=== PATIENT | male | born 1960 | race Caucasian/White ===

== ENCOUNTER → 2020-07-28 15:23 | Outpatient (CLI) | payer MEDICAID, SELFPAY ==
[2020-07-28 16:03] LABS: Basophils % 0.5 % (0.1-2.0); Eosinophils # 0.3 K/mm3 (0.0-0.4); Eosinophils % 3.5 % (0.1-12.0); Hematocrit 45.9 % (42.0-52.0); Hemoglobin 15.5 g/dL (14.1-18.0); Lymphocytes # 2.1 K/mm3 (0.7-4.5); Lymphocytes % 28.5 % (10-50); Mean Corpuscular HGB Conc 33.7 g/dL (31.8-35.4); Mean Corpuscular Hemoglobin 32.8 pg (27.0-31.2); Mean Corpuscular Volume 97.4 fl (80-94); Mean Platelet Volume 8.9 fl (7.4-10.4); Monocytes # 0.5 K/mm3 (0.1-1.0); Monocytes % 6.5 % (1.7-9.3); Neutrophils # 4.4 K/mm3 (1.8-7.8); Neutrophils % 60.9 % (37.0-80.0); Platelet Count 378 K/mm3 (142-424); Red Blood Count 4.72 M/mm3 (4.60-6.20); Red Cell Distribution Width 14.2 % (11.5-17.5); White Blood Count 7.2 K/mm3 (4.8-10.8)
[2020-07-28 17:52] LABS: Chloride 102 mmol/L (98-107); Potassium 4.2 mmoL/L (3.5-5.1); Sodium 140 mmol/L (136-145)
[2020-07-28 17:54] LABS: Alanine Aminotransferase 55 U/L (12-78); Aspartate Amino Transferase 39 U/L (17-59); Blood Urea Nitrogen 17 mg/dl (9-20); Estimated Glomerular Filt Rate 87 ml/min (>60); GFR (African American) 105 ML/MIN (>60)
[2020-07-28 17:55] LABS: Albumin Level 4.5 g/dl (3.5-5.0); Albumin/Globulin Ratio 1.5 (1.1-1.8); Alkaline Phosphatase 66 U/L (38-126); Anion Gap 14.2 mEq/L (5-15); Bilirubin,Total 0.6 mg/dl (0.2-1.3); Carbon Dioxide 28 mmol/L (22.0-30.0); Chol/HDL Ratio 5.6 (1-3.5); Cholesterol 246 mg/dl (140-200); Globulin 3.1 g/dL (1.3-3.2); Glucose 125 mg/dl (74-100); HDL Cholesterol 44 mg/dl (40-60); Total Protein,Serum 7.6 g/dl (6.3-8.2); Triglycerides 295 mg/dl (30-150); VLDL Cholesterol 59 mg/dL (0-40)
[2020-07-28 18:07] LABS: Direct LDL Cholesterol 137.29 mg/dL (100-129)
[2020-07-28 18:26] LABS: Thyroid Stimulating Hormone 3.36 uIU/mL (0.465-4.68)
[2020-07-28 21:23] LABS: Prostate Specific Ag Screen 0.9 ng/ml (0.0-4.0)
[2020-07-29 16:32] LABS: Hemoglobin A1C 6.6 % (4.0-6.0)
[2020-08-05 02:27] LABS: Testosterone, Total, LC/MS 226.5 ng/dL (264.0-916.0)
== END ==
PROVIDERS: Visit Provider Physician Assistant
DX: I10 Essential (primary) hypertension (principal); R73.09 Other abnormal glucose; Z76.89 Persons encountering health services in other specified circumstances; Z12.5 Encounter for screening for malignant neoplasm of prostate
CPT/HCPCS: 80053; 80061; 82306; 83036; 84402; 84403; 84436; 84443; 85025; G0103

== ENCOUNTER → 2020-08-10 15:03 | Outpatient (CLI) | payer MEDICAID, SELFPAY ==
[2020-08-12 09:10] LABS: Testosterone,Total 140 ng/dL (264-916)
== END ==
PROVIDERS: Visit Provider Physician Assistant
DX: R79.89 Other specified abnormal findings of blood chemistry (principal)
CPT/HCPCS: 84403

== ENCOUNTER 2021-04-04 21:27 | Inpatient (IN) | payer OTHER, SELFPAY ==
--- NOTE | 2021-04-04 21:22 | ECG_ITS ---
APPROVED REPORT Exam: Resting ECG HR:89 bpm ECG Measurements Heart Rate 89 AXES DE 144 P 25 QRSd 88 QRS 11 QT 362 T -14 QTc 440 Conclusion Normal sinus rhythm Normal ECG Electronically signed by : Shen Stone MD 04/06/2021 11:47:46
[2021-04-04 21:43] VITALS: BMI 34.3
--- NOTE | 2021-04-04 21:43 | XR_ITS ---
PROCEDURE INFORMATION: Exam: XR Chest Exam date and time: 04/04/2021 9:43 PM Age: 60 years old Clinical indication: Cough and shortness of breath; Patient HX: SOA, cough, has been around covid positive person; Additional info: SOA, chest pain TECHNIQUE: Imaging protocol: XR of the chest. Views: 2 views. COMPARISON: No relevant prior studies available. FINDINGS: Lungs: There are extensive bilateral airspace opacities, most pronounced in the mid lung regions. Findings would suggest multifocal pneumonia given the clinical history. Pulmonary edema could appear similar in the appropriate context. Pleural spaces: No pleural effusion. No pneumothorax. Heart/Mediastinum: Normal heart size. Vasculature: Mild aortic atherosclerosis. Bones/joints: Scattered degenerative changes. Probable left glenohumeral joint intra-articular body. IMPRESSION: Extensive bilateral airspace opacities probably represent multifocal pneumonia, versus pulmonary edema.
[2021-04-04 21:54] LABS: Influenza A, PCR Not Detected (NotDetected); Influenza B, PCR Not Detected (NotDetected)
[2021-04-04 21:57] LABS: Basophils % 0.3 % (0.1-2.0); Hematocrit 39.8 % (42.0-52.0); Hemoglobin 13.3 g/dL (14.1-18.0); Lymphocytes # 0.7 K/mm3 (0.7-4.5); Lymphocytes % 9.8 % (10-50); Mean Corpuscular HGB Conc 33.4 g/dL (31.8-35.4); Mean Corpuscular Volume 89.7 fl (80-94); Monocytes # 0.3 K/mm3 (0.1-1.0); Monocytes % 3.4 % (1.7-9.3); Neutrophils # 6.3 K/mm3 (1.8-7.8); Neutrophils % 86.4 % (37.0-80.0); Platelet Count 321 K/mm3 (142-424); Red Blood Count 4.43 M/mm3 (4.60-6.20); Red Cell Distribution Width 14.4 % (11.5-17.5); White Blood Count 7.3 K/mm3 (4.8-10.8)
[2021-04-04 22:00] VITALS: BP 149/70; PULSE 89; RESP 28; TEMP 37.2; O2SAT 92; BMI 33.3
[2021-04-04 22:02] LABS: Anion Gap 12.6 mEq/L (5-15); Blood Urea Nitrogen 21 mg/dl (9-20); Calcium 8.4 mg/dl (8.4-10.2); Carbon Dioxide 27 mmol/L (22.0-30.0); Chloride 102 mmol/L (98-107); Creatinine Clearance Estimated 106 mL/min (50-200); Estimated Glomerular Filt Rate 69 ml/min (>60); GFR (African American) 83 ML/MIN (>60); Glucose 134 mg/dl (74-100); MANUAL DIFFERENTIAL MANUAL DIFFERENTIAL (MANUAL DIFF); Potassium 3.6 mmoL/L (3.5-5.1); Sodium 138 mmol/L (136-145)
[2021-04-04 22:07] LABS: C-Reactive Protein 118.7 mg/L (0-4)
[2021-04-04 22:16] LABS: Troponin I 0.02 ng/ml (0.00-0.034)
[2021-04-04 22:23] LABS: Lactic Acid 1.2 mmol/L (0.7-2.1)
[2021-04-04 22:27] LABS: Coronavirus 19, PCR Detected (NotDetected)
--- NOTE | 2021-04-04 22:27 | CT_ITS ---
PROCEDURE INFORMATION: Exam: CTA Chest With Contrast Exam date and time: 04/04/2021 10:27 PM Age: 60 years old Clinical indication: Shortness of breath; Additional info: Covid + SOA TECHNIQUE: Imaging protocol: Computed tomographic angiography of the chest with contrast. 3D rendering (Not supervised by radiologist): MIP and/or 3D reconstructed images were created by the technologist. Radiation optimization: All CT scans at this facility use at least one of these dose optimization techniques: automated exposure control; mA and/or kV adjustment per patient size (includes targeted exams where dose is matched to clinical indication); or iterative reconstruction. Contrast material: ISOVUE 370; Contrast volume: 70 ml; Contrast route: INTRAVENOUS (IV); COMPARISON: CR XR CHEST 2V 04/04/2021 10:06 PM FINDINGS: Pulmonary arteries: Main pulmonary artery measures 3.5 cm in caliber, mildly dilated, suggesting elevated pulmonary arterial pressures. No large or central pulmonary embolus. There is mild diffuse heterogeneity of the subsegmental pulmonary arteries due to artifact, without convincing filling defect. Aorta: No thoracic aortic aneurysm. No evidence of dissection, within limits of motion artifact. Scattered mild atherosclerotic plaque. 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 Replaced right hepatic artery arising from the SMA, partially visualized. Lungs: Numerous bilateral ground-glass opacities, which are relatively confluent, with randy consolidation noted in several portions of the bilateral upper and lower lobes. Pleural spaces: Trace bilateral pleural effusions. No pneumothorax. Heart: Mild coronary arterial calcification. Heart size borderline enlarged. No pericardial effusion. Lymph nodes: There are a few mildly enlarged prevascular lymph nodes measure up to 1.2 cm in short axis. Right paratracheal lymph nodes measure up to 1.6 cm in short axis. There is a 1.4 cm short axis subcarinal lymph node. There are scattered aortopulmonary window and precarinal lymph nodes measuring up to 1 cm in short axis. Given the extensive pneumonia present, findings are favored to be reactive. Adrenal glands: Mild thickening of the bilateral adrenal glands. There is a probable superimposed 1.6 x 1.0 cm left adrenal nodule, partially visualized. Bones/joints: Mild spondylosis. No acute fracture. Soft tissues: Unremarkable. IMPRESSION: 1. Extensive bilateral multifocal pneumonia, compatible with history of viral infection. 2. No evidence of pulmonary embolus. 3. Trace bilateral pleural effusions. 4. Numerous enlarged lymph nodes are present throughout the mediastinum, probably reactive given the pneumonia. However, consider a follow-up CT in 3-6 months to assess for resolution. 5. Nonspecific thickening bilateral glands, with a partially visualized likely 1.6 x 1.0 cm left adrenal nodule. Consider 12 month follow-up adrenal CT. (Reference: Tami) References: Tami WEINBERG, et al. Management of Incidental Adrenal Masses: A White Paper of the ACR Incidental Findings Committee. J Am Sherice Radiol. 2017;14(8):3907-3019.
[2021-04-04 22:33] LABS: Erythrocyte Sedimentation Rate 68 mm/hr (0-20)
[2021-04-04 22:42] LABS: NT Pro Brain Natriuretic Pep. 543 pg/mL (0-125)
[2021-04-04 22:52] LABS: Eosinophils % 1 % (0-3); Lymphocytes % 9 % (10-50); Monocytes % 2 % (2-9); Neutrophils % 86 % (42-76); Platelet Estimate Normal; Total Cells Counted 100
--- NOTE | 2021-04-04 23:04 | HMH.EDSOB ---
ED Disposition Clinical Impression: COVID-19 with pulmonary comorbidity Disposition: Admitted As Inpatient Condition on Discharge: Serious - Critical Care Critical Care Time: No Attestation: On 04/04/21, the high probability of a clinically significant, sudden or life threatening deterioration of the following system(s) required my full and direct attention, intervention and personal management. The time I documented below is in addition to time spent performing reported procedures but includes the following listed in this critical care notation. Medical Decision Making - Medical Records Medical records reviewed: Yes: I reviewed the patient's medical records. - Jed Inquiry Pt receiving controlled substance: No Vital Signs: 04/04/21 22:00 Temperature 98.9 F Temperature Source Oral Pulse Rate [Right Brachial] 89 Respiratory Rate 28 H Blood Pressure [Right Arm] 149/70 H Blood Pressure Mean [Right Arm] 96 Blood Pressure Source [Right Arm] Automatic Cuff Blood Pressure Position [Right Arm] Sitting 02 Sat by Pulse Oximetry 92 L Oxygen Delivery Method Room Air - Lab Data Lab results reviewed: Yes: I reviewed the patient's lab results. Lab Results 04/04/21 21:35: WBC 7.3, RBC 4.43 L, Hgb 13.3 L, Hct 39.8 L, MCV 89.7, MCH 30.0, MCHC 33.4, RDW 14.4, Plt Count 321, MPV 8.0, Neut % (Auto) 86.4 H, Lymph % (Auto) 9.8 L, [place] % (Auto) 3.4, Eos % (Auto) 0.0 L, Baso % (Auto) 0.3, Neut # (Auto) 6.3, Lymph # (Auto) 0.7, [place] # (Auto) 0.3, Eos # (Auto) 0.0, Baso # (Auto) 0.0, Total Counted 100, Neutrophils % (Manual) 86 H, Lymphocytes % (Manual) 9 L, Monocytes % (Manual) 2, Eosinophils % (Manual) 1, Basophils % (Manual) 2.0 H, Platelet Estimate Normal 04/04/21 21:35: Sodium 138, Potassium 3.6, Chloride 102, Carbon Dioxide 27, Anion Gap 12.6, BUN 21 H, Creatinine 1.10, Estimated Creat Clear 106, Estimated GFR 69, Est GFR ( Amer) 83, Glucose 134 H, Calcium 8.4, Magnesium 2.0, Troponin I 0.02, C-Reactive Protein 118.7 H 04/04/21 21:35: ESR 68 H 04/04/21 21:35: Procalcitonin 0.177 04/04/21 21:35: NT-Pro-B Natriuret Pep 543 H 04/04/21 21:45: SARS-CoV-2 (PCR) Detected A, Influenza A Untype (PCR) Not detected, Influenza Type B (PCR) Not detected 04/04/21 22:02: Lactate 1.2 Result diagrams: 04/04/21 21:35 04/04/21 21:35 Orders (Tests/Meds): ED MEDICATIONS Generic Name Dose Route Start Last Admin Trade Name Freq PRN Reason Stop Dose Admin Sodium Chloride 1,000 mls @ 999 mls/hr 04/04/21 22:15 04/04/21 22:23 Sod Chlor 0.9% 1000ml Bag IV 04/04/21 23:15 999 mls/hr .Q1H1M JEET Administration Levofloxacin/Dextrose 500 mg in 100 mls @ 100 mls/hr 04/04/21 23:45 04/05/21 00:02 Levaquin 500mg/100ml Premix IV 04/18/21 23:44 100 mls/hr Q24H JEET Administration Discontinued Medications Generic Name Dose Route Start Last Admin Trade Name Freq PRN Reason Stop Dose Admin Dexamethasone Sodium Phosphate 10 mg 04/04/21 22:06 04/04/21 22:23 Dexamethasone 4mg/Ml 5ml Mdv IV 04/04/21 22:07 10 mg ONCE ONE Administration Iopamidol 70 ml 04/04/21 23:04 04/04/21 23:05 Iopamidol-370 (76%);100ml Bottle IV 04/04/21 23:05 70 ml ONCE ONE Administration Ketorolac Tromethamine 30 mg 04/04/21 22:06 04/04/21 22:23 Ketorolac 30mg/Ml Vial IV 04/04/21 22:07 30 mg ONCE ONE Administration Sodium Chloride 50 ml 04/04/21 23:04 04/04/21 23:05 0.9 % Sodium Chloride 50 Ml Vial IV 04/04/21 23:05 50 ml ONCE ONE Administration Sodium Chloride 10 ml 04/04/21 23:04 04/04/21 23:05 Sodium Chloride 0.9% 10ml Syr (Rad Only) IV 04/04/21 23:05 10 ml ONCE ONE Administration ORDERS Category Date Time Status Troponin I Q3H Lab 04/05/21 00:45 Ordered Troponin I Q3H Lab 04/05/21 03:45 Ordered Urinalysis and Microscopic Stat Lab 04/04/21 21:43 Ordered Blood Culture Stat Micro 04/04/21 22:05 Ordered - Radiology Data #1 Image(s): Chest Image Reviewed: Yes I have re
[2021-04-04 23:14] LABS: Procalcitonin 0.177 ng/mL (0.0-2.0)
[2021-04-05] VITALS (13 sets, daily range): BP systolic 107–153; BP diastolic 64–80; PULSE 60–95; RESP 14–28; TEMP 36.4–37.3; O2SAT 60–93; BMI 33.6
--- NOTE | 2021-04-05 01:28 | PC.NURSE ---
patient up to floor via wheelchair @ 01:06
[2021-04-05 01:36] LABS: Troponin I 0.02 ng/ml (0.00-0.034)
[2021-04-05 05:34] LABS: Basophils # 0.1 K/mm3 (0-0.2); Basophils % 0.6 % (0.1-2.0); Eosinophils % 0.1 % (0.1-12.0); Hematocrit 37.8 % (42.0-52.0); Hemoglobin 12.7 g/dL (14.1-18.0); Lymphocytes # 0.7 K/mm3 (0.7-4.5); Lymphocytes % 8.6 % (10-50); Mean Corpuscular HGB Conc 33.6 g/dL (31.8-35.4); Mean Corpuscular Hemoglobin 30.4 pg (27.0-31.2); Mean Corpuscular Volume 90.5 fl (80-94); Mean Platelet Volume 7.8 fl (7.4-10.4); Monocytes # 0.2 K/mm3 (0.1-1.0); Monocytes % 2.2 % (1.7-9.3); Neutrophils # 6.9 K/mm3 (1.8-7.8); Neutrophils % 88.5 % (37.0-80.0); Platelet Count 297 K/mm3 (142-424); Red Blood Count 4.18 M/mm3 (4.60-6.20); Red Cell Distribution Width 14.2 % (11.5-17.5); White Blood Count 7.8 K/mm3 (4.8-10.8)
[2021-04-05 06:04] LABS: Troponin I 0.01 ng/ml (0.00-0.034)
--- NOTE | 2021-04-05 07:00 | XR_ITS ---
PROCEDURE INFORMATION: Exam: XR Chest Exam date and time: 04/05/2021 7:00 AM Age: 60 years old Clinical indication: Shortness of breath; Patient HX: Covid positive; Additional info: SOB TECHNIQUE: Imaging protocol: XR of the chest. Views: 1 view. COMPARISON: CR XR CHEST 2V 04/04/2021 10:06 PM FINDINGS: Lungs: diffuse interstitial and alveolar airspace disease most pronounced in the perihilar regions and lung bases than right. Pneumonia versus cardiogenic or noncardiogenic edema versus other alveolar filling process. Correlate. Pleural spaces: Unremarkable. No pleural effusion. No pneumothorax. Heart/Mediastinum: Borderline cardiomegaly. Bones/joints: Unremarkable. IMPRESSION: Diffuse interstitial and alveolar airspace disease most pronounced in the perihilar regions and lung bases than right. Pneumonia versus cardiogenic or noncardiogenic edema versus other alveolar filling process. Correlate.
--- NOTE | 2021-04-05 07:36 | HMH.PHAVTE ---
[facility] Pharmacy VTE Monitoring - Patient Demographics Admission date: 04/04/21 Report Date: 04/05/21 Time: 07:36 Allergies/Adverse Reactions: Patient Allergies No Known Allergies Allergy (Verified 09/09/20 09:08) Height: 1.75 m Weight: 102.965 kg Patient Problems: Current Active Problems COVID-19 with pulmonary comorbidity (Acute) - VTE Risk Labs: VTE Related Lab Results Hgb 12.7 g/dL (14.1-18.0) L 04/05/21 05:14 Hct 37.8 % (42.0-52.0) L 04/05/21 05:14 Plt Count 297 K/mm3 (142-424) 04/05/21 05:14 BUN 21 mg/dl (9-20) H 04/04/21 21:35 Creatinine 1.10 mg/dl (0.66-1.25) 04/04/21 21:35 Estimated Creat Clear 106 mL/min (50-200) 04/04/21 21:35 - Prophylaxis VTE Prophylaxis Ordered?: Yes Types of VTE Prophylaxis: TEDS Knee High Location of Applied Device: Bilateral Lower Extremeties
--- NOTE | 2021-04-05 08:00 | CA_ITS ---
APPROVED REPORT EXAM: Comprehensive 2D, Doppler, and color-flow Echocardiogram Motor Man: Ruby Shankar CRT Ht: 5 ft 9 in Wt: 226lbs BSA: 2.18 BP: 000/00 mmHg Indications: Covid +, Shortness of Breath, Diabetes, Hyperlipidemia, Hypertension/HDD, asthma, weekly alcohol use, on vapotherm and NRB, pneumonia pt coughed thru out exam 2D Dimensions LVOT 2.00 cm (M/F) 1.5-2.5 LA Volume 58.00 mL LA Volume Index 26.60 mL/m2 (M/F) 16-34 M-Mode Dimensions RVDd 2.81 cm (0.9-2.6) LA Diam 3.63 cm (1.9-4.0) LVDd 5.72 cm (3.5-5.7) Ao Diam 4.71 cm (2.0-3.7) LVDs 3.95 cm (3.5-5.7) IVSd 1.54 cm (0.6-1.1) PWd 1.04 cm (0.6-1.1) EF (Teich) 57.90% FS 30.90% EDV (Teich) 161.30 mL TAPSE 2.06 (<1.7) ESV (Teich) 67.90 mL LV Diastology E Decel Time 157.00 (160-240 msec) E/A Ratio 1.32 MED E' 8.00 (< 7 cm/sec) MED A' 11.60 cm/s E'/MED E' Ratio 14.54 (>14) LAT E' 8.50 (<10 cm/sec) LAT A' 13.30 cm/s E/LAT E' Ratio 13.68 (>14) Aortic Valve LVOT Max 142.00 (70-110 cm/s) LVOT VTI 31.56 cm AoV Peak Bakari. 209.00 (50-130 cm/s) AO Peak GR. 17.60 mmHg AO Mean GR. 7.80 (<5 mmHg) AO VTI 39.00 (18-25 cm) LIMA (VTI) 2.54 (2.5-4.5 cm2) Mitral Valve MV A Velocity 88.00 (40-130 cm/s) E/A Ratio 1.32 MV Decel. Time 157.00 (160-240 ms) Pulmonary Valve PV Peak Velocity 165.00 (50-150 cm/s) Tricuspid Valve TR P. Velocity 172.00 cm/s RAP Estimate 10.00 mmHg RVSP 21.80 mmHg Left Ventricle Left atrium is mildly enlarged, left ventricle is normal size, mild concentric left ventricular hypertrophy, visually estimated ejection fraction 55% with no regional wall motion abnormality, grade 1 diastolic dysfunction seen without tissue Doppler evidence of raise left atrial pressure. Right Ventricle Right atrium and right ventricle mildly enlarged with normal contractility. Aortic Valve Aortic valve is thickened and calcified without significant aortic stenosis or aortic insufficiency. Mitral Valve Mitral valve is grossly normal, there is trace mitral regurgitation. Tricuspid Valve Tricuspid grossly normal, there is trace tricuspid regurgitation, tricuspid regurgitation jet velocity is inadequate for calculation of the right ventricular systolic pressure. Pulmonic Valve Pulmonic valve is poorly visualized. Great Vessels Aortic root is enlarged measuring 4.8 cm, if clinically indicated CT scan of the chest with contrast is recommended to exclude presence of thoracic aneurysm. Inferior vena cava is mildly dilated without significant inspiratory collapse. Pericardium No significant pericardial effusion noted. Conclusion 1. Biatrial enlargement, normal left ventricular size, mild concentric left ventricular hypertrophy, visually estimated ejection fraction 55% with no regional wall motion abnormality, grade 1 diastolic dysfunction seen without tissue Doppler evidence of raise left atrial pressure. 2. Enlarged aortic root as described above, a CT scan of the chest is recommended to exclude presence of thoracic aneurysm. 3. Trace mitral and tricuspid regurgitation. 4. No significant pericardial effusion noted, inferior vena cava is mildly dilated without significant inspiratory collapse. Electronically signed by : Tyshawn Morris MD 04/05/2021 17:14:07
--- NOTE | 2021-04-05 09:15 | HMH.HP ---
*Admission Date: 04/04/21 *Chief complaint: Shortness of breath *History of present illness: 60-year-old male patient presented to the [facility] department with reports of shortness of breath, he states that his was Covid +4 weeks ago and he began having symptoms then, but was never tested. He reports he has been short of breath in the past 4 weeks and has been increasing and now it is intolerable. 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 SARS-COV-2+ 04/04/21 CXR: IMPRESSION: Extensive bilateral airspace opacities probably represent multifocal pneumonia, versus pulmonary edema. Electronically signed by Naveed Hanson MD 04/04/21 Chest CTA: FINDINGS: Pulmonary arteries: Main pulmonary artery measures 3.5 cm in caliber, mildly dilated, suggesting elevated pulmonary arterial pressures. No large or central pulmonary embolus. There is mild diffuse heterogeneity of the subsegmental pulmonary arteries due to artifact, without convincing filling defect. Aorta: No thoracic aortic aneurysm. No evidence of dissection, within limits of motion artifact. Scattered mild atherosclerotic plaque. 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 Replaced right hepatic artery arising from the SMA, partially visualized. Lungs: Numerous bilateral ground-glass opacities, which are relatively confluent, with randy consolidation noted in several portions of the bilateral upper and lower lobes. Pleural spaces: Trace bilateral pleural effusions. No pneumothorax. Heart: Mild coronary arterial calcification. Heart size borderline enlarged. No pericardial effusion. Lymph nodes: There are a few mildly enlarged prevascular lymph nodes measure up to 1.2 cm in short axis. Right paratracheal lymph nodes measure up to 1.6 cm in short axis. There is a 1.4 cm short axis subcarinal lymph node. There are scattered aortopulmonary window and precarinal lymph nodes measuring up to 1 cm in short axis. Given the extensive pneumonia present, findings are favored to be reactive. Adrenal glands: Mild thickening of the bilateral adrenal glands. There is a probable superimposed 1.6 x 1.0 cm left adrenal nodule, partially visualized. Bones/joints: Mild spondylosis. No acute fracture. Soft tissues: Unremarkable. IMPRESSION: 1. Extensive bilateral multifocal pneumonia, compatible with history of viral infection. 2. No evidence of pulmonary embolus. 3. Trace bilateral pleural effusions. 4. Numerous enlarged lymph nodes are present throughout the mediastinum, probably reactive given the pneumonia. However, consider a follow-up CT in 3-6 months to assess for resolution. 5. Nonspecific thickening bilateral glands, with a partially visualized likely 1.6 x 1.0 cm left adrenal nodule. Consider 12 month follow-up adrenal CT. Electronically signed by Naveed Hanson MD 60-year-old male patient sitting up in bed denies any respiratory distress or chest pain during the night. Oxygenation is Vapotherm 40 L at 100%. Pulmonology to see. [facility] History I have reviewed the patient's past medical history: Yes Medical History: Reports:: Asthma, Cancer (skin all has been treated), Congenital Heart Disease, Hyperlipidemia, Hypertension Denies:: Diabetes Mellitus Type 1, Diabetes Mellitus Type 2, MRSA *Have you ever received a pneumonia vaccine?: No *Have you received a flu vaccine this season?: No Other Medical History: Reports: Arthritis Other Surgeries: Yes: Colonoscopy Amputation: No Fractures: No - *Social History Last grade of school completed: High school graduate Smoking Status: Former smoker Tobacco Type: cigarettes #Yrs smoked (if former smoker): 20
[2021-04-05 09:31] LABS: C-Reactive Protein 102.7 mg/L (0-4)
[2021-04-05 10:04] LABS: D-Dimer 0.93 ug/mL (0.0-0.5)
--- NOTE | 2021-04-05 10:36 | HMH.CNCARD ---
History of Present Illness Consult date: 04/05/21 Requesting physician: Jhony Lemus Consult reason: shortness of breath Chief complaint: Covid, sob History of present illness: 60-year-old male admitted to [facility] with worsening shortness of breath for the past few days. Patient states his had been diagnosed with Covid and felt that he was exhibiting the same symptoms as his but worse. Patient denies productive cough. Patient denies fever. Patient states since being in the hospital overnight he has felt some better. Patient denies chest pain, tightness or pressure. Patient denies palpitations or dizziness. D-dimer was noted as elevated. Chest CTA was performed which revealed extensive bilateral multifocal pneumonia which is being managed by PCP. Trace of bilateral pleural effusions were also noted. This is being managed by PCP and pulmonology. Patient denies any known cardiac history. Patient does have history of hypertension which is controlled with lisinopril. History of hyperlipidemia in which patient is on a statin. Patient is a smoker of 1 pack of cigarettes per day and has been for several years. Patient states he was currently diagnosed with asthma. Patient is currently on a nonrebreather Vapotherm to assist in his breathing. Echocardiogram was obtained to assess LV function and valve status. Preliminary echocardiogram reveals EF 45 to 50% with mild to moderate MR. Awaiting official echo results. surgical product sales consultant reveals sinus rhythm with a heart rate of 65 bpm. Blood pressure is stable. Chest CTA:IMPRESSION: 1. Extensive bilateral multifocal pneumonia, compatible with history of viral infection. 2. No evidence of pulmonary embolus. 3. Trace bilateral pleural effusions. 4. Numerous enlarged lymph nodes are present throughout the mediastinum, probably reactive given the pneumonia. However, consider a follow-up CT in 3-6 months to assess for resolution. 5. Nonspecific thickening bilateral glands, with a partially visualized likely 1.6 x 1.0 cm left adrenal nodule. Consider 12 month follow-up adrenal CT. Discussed plan of care with Dr. Millan. Orders were received from Dr. Millan. Echocardiogram was ordered to assess LV function and valve status. Pending on the results of the echocardiogram, medication and therapy changes may be recommended. No further cardiac testing is recommended at this time. Please notify cardiology of any changes in patient status. Thank you for allowing cardiology to participate in the care of this patient. [facility] History I have reviewed the patient's past medical history: Yes Medical History: Reports:: Asthma, Cancer (skin all has been treated), Congenital Heart Disease, Hyperlipidemia, Hypertension Denies:: Diabetes Mellitus Type 1, Diabetes Mellitus Type 2, MRSA *Have you ever received a pneumonia vaccine?: No *Have you received a flu vaccine this season?: No Other Medical History: Reports: Arthritis Other Surgeries: Yes: Colonoscopy Amputation: No Fractures: No - *Social History Last grade of school completed: High school graduate Smoking Status: Former smoker Tobacco Type: cigarettes #Yrs smoked (if former smoker): 20 Alcohol Intake: current Alcohol Intake Frequency:: a few times a month Substance Use Type: denies use *Occupational Status:: employed Housing: house Household Members: spouse *Travel in the last 8 weeks: None Family Hx:: Coronary Artery Disease, Diabetes, Heart Attack, Hyperlipidemia, Hypertension Meds Home Medications Medication Instructions Recorded Confirmed Type Aspirin [Low Dose Aspirin EC] 81 mg PO DAILY 04/04/21 04/05/21 History Atorvastatin Calcium [Lipitor 10mg 10 mg PO HS 04/04/21 04/05/21 History Tab] Mesalamine [Mesalamine ER] 0.375 g PO DAILY 04/04/21 04/05/21 History Montelukast Sodium [Singulair] 10 mg PO DAILY 04/04/21 04/05/21 History NIFEdipine [Nifedipine ER] 90 mg PO DAILY
--- NOTE | 2021-04-05 11:44 | HMH.PHAINT ---
MEDICATION RECONCILIATION COMPLETED ON PATIENT USING EXTERNAL FILL HISTORY FROM PHARMACY. -PO [place], LUISD
--- NOTE | 2021-04-05 12:44 | HMH.PULMCON ---
*Admission Date: 04/04/21 *Reason for consult:: Acute hypoxic respiratory failure, COVID-19 pneumonia *History of present illness: Mr. Meek is 60-year-old male prior smoker last month 20 years ago unvaccinated presented hospital complaining of worsening respiratory distress and found to be positive for COVID-19 pneumonia admits sick contacts, her was diagnosed with COVID-19 pneumonia. Patient admits cough with worsening productive phlegm which is whitish in color along with subjective fevers and chills. He denies any baseline respiratory complaints. Denies any use of inhalers at home. [facility] History Medical History: Reports:: Asthma, Cancer (skin all has been treated), Congenital Heart Disease, Hyperlipidemia, Hypertension Denies:: Diabetes Mellitus Type 1, Diabetes Mellitus Type 2, MRSA *Have you ever received a pneumonia vaccine?: No *Have you received a flu vaccine this season?: No Other Medical History: Reports: Arthritis Other Surgeries: Yes: Colonoscopy Amputation: No Fractures: No - *Social History Last grade of school completed: High school graduate Smoking Status: Former smoker Tobacco Type: cigarettes #Yrs smoked (if former smoker): 20 Alcohol Intake: current Alcohol Intake Frequency:: a few times a month Substance Use Type: denies use *Occupational Status:: employed Housing: house Household Members: spouse *Travel in the last 8 weeks: None Family Hx:: Coronary Artery Disease, Diabetes, Heart Attack, Hyperlipidemia, Hypertension ROS - Cons Reports anorexia, Reports body ache(s) - Eyes Reports blind spots - ENT Denies abnormal hearing - Card Reports shortness of breath, Reports shortness of breath with activity - Resp Respiratory: Reports change in phlegm color, Reports chest congestion, Reports cough, Reports excessive phlegm production - GI Gastrointestingal: Denies: abdominal pain - [place] Musculoskeletal: Denies joint stiffness, Denies joint swelling Meds Home Medications Medication Instructions Recorded Confirmed Type Aspirin [Low Dose Aspirin EC] 81 mg PO DAILY 04/04/21 04/05/21 History Atorvastatin Calcium [Lipitor 10mg 10 mg PO HS 04/04/21 04/05/21 History Tab] Mesalamine [Mesalamine ER] 0.375 g PO DAILY 04/04/21 04/05/21 History Montelukast Sodium [Singulair] 10 mg PO DAILY 04/04/21 04/05/21 History NIFEdipine [Nifedipine ER] 90 mg PO DAILY 04/04/21 04/05/21 History Trazodone HCl 50 mg PO HS 04/04/21 04/05/21 History cloNIDine HCL [cloNIDine 0.2mg 0.2 mg PO BID 04/04/21 04/05/21 History Tablet] hydroCHLOROthiazide [HCTZ 25mg 25 mg PO DAILY 04/04/21 04/05/21 History tab] lisinopriL [Lisinopril] 40 mg PO DAILY 04/04/21 04/05/21 History Allergies Allergy/AdvReac Type Severity Reaction Status Date / Time No Known Allergies Allergy Verified 09/09/20 09:08 Exam - Constitutional Constitutional:: Present: comfortable - HENMT Exam HENMT: Present: normocephalic, atraumatic - Neck Exam Neck:: Present: normal visual inspection - Respiratory Exam Respiratory:: Present: able to speak in complete sentences, respiratory distress, crackles, rales. Absent: wheezing - Cardiovascular Exam Cardiac:: Present: S1, S2 - GI Exam GI:: Present: soft - Skin Exam Skin: Present: warm, no rash, dry - Neurological Exam Neurological: Present: alert, awake, normal cognition - Extremities Exam Extremities: Present: no cyanosis, no clubbing, no edema Internal Medicine - CN: Reslt - Labs CBC & Chem 7: 04/05/21 05:14 04/04/21 21:35 Labs: Short CBC 04/04/21 04/05/21 Range/Units 21:35 05:14 WBC 7.3 7.8 (4.8-10.8) K/mm3 Hgb 13.3 L 12.7 L (14.1-18.0) g/dL Hct 39.8 L 37.8 L (42.0-52.0) % Plt Count 321 297 (142-424) K/mm3 BMP 04/04/21 21:35 Sodium 138 Potassium 3.6 Chloride 102 Carbon Dioxide 27 BUN 21 H Creatinine 1.10 Glucose 134 H Calcium 8.4 Cardiac Enzymes 04/04/21 04/05/21 04/05/21 Range/Units
--- NOTE | 2021-04-05 14:47 | PC.NURSE ---
PATIENT PUT INTO PRONE POSITION AT 1420. SAO2 89% INCREASED TO 96% WITH IN 5 MINUTES. 30 MINUTES LATER SAO2 93%
--- NOTE | 2021-04-05 16:29 | PC.NURSE ---
Pt has been pleasant and cooperative this shift. A&O X4. No complaints of pain. Pt is currently receiving O2 via Non-Rebreather/Vapotherm @ 40 LPM with sats. >88%. Lung sounds reveal expiratory rhonchi. No edema noted. Skin is C/D/I. Telemetry reveals NSR. Pt ambulates independently. Pt turns/repositions independently and prones himself as needed. Urine is clear and yellow. No BM thus far this shift. Pt has been instructed to provide a sputum sample and a specimen cup is at bedside. 20 G peripheral IV in the RT AC is patent and infusing NS @ 75 ML/HR. VSS. Call light within reach. Will continue to monitor.
[2021-04-06] VITALS (12 sets, daily range): BP systolic 99–130; BP diastolic 51–72; PULSE 70–130; RESP 20–26; TEMP 36.7–36.9; O2SAT 80–92; BMI 33.6
--- NOTE | 2021-04-06 03:04 | PC.NURSE ---
Pt rested well last night. Pt is currently receiving O2 via Non-Rebreather/Vapotherm @ 40 LPM with sats. O2 stats remained in low to mid 80's for beginning of shift. Pt can prone himself and his stats improve to 90%-92% t/o shift. Pt denies sob, pain, N/V. Admin meds per OCT, pt is able to make needs known to staff. Call light within reach, will continue to monitor.
[2021-04-06 06:28] LABS: Chloride 106 mmol/L (98-107); Potassium 4.1 mmoL/L (3.5-5.1); Sodium 138 mmol/L (136-145)
[2021-04-06 06:30] LABS: Blood Urea Nitrogen 23 mg/dl (9-20); Creatinine Clearance Estimated 130 mL/min (50-200); Estimated Glomerular Filt Rate 87 ml/min (>60); GFR (African American) 105 ML/MIN (>60)
[2021-04-06 06:31] LABS: Alanine Aminotransferase 50 U/L (12-78); Alkaline Phosphatase 55 U/L (38-126); Anion Gap 10.1 mEq/L (5-15); Aspartate Amino Transferase 82 U/L (17-59); Bilirubin,Total 0.3 mg/dl (0.2-1.3); Calcium 7.9 mg/dl (8.4-10.2); Carbon Dioxide 26 mmol/L (22.0-30.0); Globulin 2.9 g/dL (1.3-3.2); Glucose 174 mg/dl (74-100); Total Protein,Serum 5.9 g/dl (6.3-8.2)
[2021-04-06 06:59] LABS: Basophils % 0.3 % (0.1-2.0); Eosinophils % 0.1 % (0.1-12.0); Hematocrit 25.5 % (42.0-52.0); Hemoglobin 8.9 g/dL (14.1-18.0); Lymphocytes # 1.1 K/mm3 (0.7-4.5); Lymphocytes % 14.5 % (10-50); Mean Corpuscular HGB Conc 34.8 g/dL (31.8-35.4); Mean Corpuscular Hemoglobin 30.9 pg (27.0-31.2); Mean Corpuscular Volume 88.9 fl (80-94); Mean Platelet Volume 8.8 fl (7.4-10.4); Monocytes # 0.4 K/mm3 (0.1-1.0); Monocytes % 4.5 % (1.7-9.3); Neutrophils # 6.3 K/mm3 (1.8-7.8); Neutrophils % 80.6 % (37.0-80.0); Platelet Count 480 K/mm3 (142-424); Red Blood Count 2.87 M/mm3 (4.60-6.20); Red Cell Distribution Width 14.3 % (11.5-17.5); White Blood Count 7.8 K/mm3 (4.8-10.8)
--- NOTE | 2021-04-06 08:35 | P.PN_ITS ---
Internal Medicine - PN: Subj *Date: 04/06/21 *Time: 08:35 Interval history: pt states he feels ok. has been sitting up in chair. vapertherm in place. pt ate breakfast Exam Vital signs and Labs for Last 24 Hours: Temp Pulse Resp BP Pulse Ox 98.0 F 74 24 104/51 L 87 L 04/06/21 07:32 04/06/21 07:32 04/06/21 07:32 04/06/21 07:32 04/06/21 07:32 Laboratory Results - last 24 hr 04/05/21 05:14: C-Reactive Protein 102.7 H 04/05/21 09:32: D-Dimer 0.93 H 04/06/21 05:25: WBC 7.8, RBC 2.87 L D, Hgb 8.9 L, Hct 25.5 L, MCV 88.9, MCH 30. 9, MCHC 34.8, RDW 14.3, Plt Count 480 H D, MPV 8.8, Neut % (Auto) 80.6 H, Lymph % (Auto) 14.5, [place] % (Auto) 4.5, Eos % (Auto) 0.1, Baso % (Auto) 0.3, Neut # (Auto) 6.3, Lymph # (Auto) 1.1, [place] # (Auto) 0.4, Eos # (Auto) 0.0, Baso # (Auto) 0.0 04/06/21 05:25: Sodium 138, Potassium 4.1, Chloride 106, Carbon Dioxide 26, Anio n Gap 10.1, BUN 23 H, Creatinine 0.90, Estimated Creat Clear 130, Estimated GFR 87, Est GFR ( Amer) 105 D, Glucose 174 H, Calcium 7.9 L, Total Bilirubin 0.3, AST 82 H, ALT 50, Alkaline Phosphatase 55, Total Protein 5.9 L, Albumin 3.0 L, Globulin 2.9, Albumin/Globulin Ratio 1.0 L I & O for Last 24 hours: Intake & Output 04/03/21 04/04/21 04/05/21 04/06/21 11:59 11:59 11:59 11:59 Intake Total 1510 / 1510 1590 / 1590 Output Total 550 / 550 1825 / 1825 Balance 960 / 960 -235 / -235 Weight 227 lb - Constitutional no acute distress - *Routine HEENT Exam Head: Present: normocephalic Eye: Present: PERRL ENT: Present: mucous membranes moist - *Routine Neck Exam Present: supple. Absent: lymphadenopathy - *Routine Respiratory Exam Present: decreased breath sounds, rhonchi - *Routine Cardiovascular Exam Present: RRR - *Routine Abdominal Exam Present: soft, normoactive bowel sounds. Absent: tenderness - *Routine Extremities Exam Absent: cyanosis, clubbing, edema - *Routine Skin Exam Present: warm. Absent: rash - *Routine Neurological Exam Present: alert, oriented X3 - Routine Psychiatric Exam Present: normal affect Assessment and Plan (1) COVID-19 with pulmonary comorbidity Status: Acute Category: Medical Code(s): U07.1 - COVID-19; J98.4 - Other disorders of lung (2) HTN (hypertension) Status: Acute Category: Medical Code(s): I10 - Essential (primary) hypertension (3) HLD (hyperlipidemia) Status: Acute Category: Medical Code(s): E78.5 - Hyperlipidemia, unspecified (4) Pneumonia Status: Acute Category: Medical Code(s): J18.9 - Pneumonia, unspecified organism - Assessment and plan all Dx Assessment and Plan for all problems:: rounded with dr leavitt all orders per dr leavitt continue plan of care
--- NOTE | 2021-04-06 08:56 | HMH.PULMPN ---
Internal Medicine - PN: Subj *Date: 04/06/21 *Time: 13:07 Interval history: No acute respiratory vents overnight. Patient denies any worsening respiratory distress. Exam - Constitutional Constitutional:: Present: no acute distress, comfortable - HENMT Exam HENMT: Present: normocephalic, moist mucous membranes - Eye Exam Eyes:: Present: normal appearance both eyes and related structures - Neck Exam Neck:: Present: normal visual inspection - Respiratory Exam Respiratory:: Present: able to speak in complete sentences, respiratory distress, crackles. Absent: wheezing - Cardiovascular Exam Cardiac:: Present: S1, S2 - GI Exam GI:: Present: soft - Skin Exam Skin: Present: warm, no rash, dry - Neurological Exam Neurological: Present: alert, awake, normal cognition - Extremities Exam Extremities: Present: no cyanosis, no clubbing, no edema Assessment and Plan (1) COVID-19 with pulmonary comorbidity Status: Acute Category: Medical Code(s): U07.1 - COVID-19; J98.4 - Other disorders of lung (2) HTN (hypertension) Status: Acute Category: Medical Code(s): I10 - Essential (primary) hypertension (3) HLD (hyperlipidemia) Status: Acute Category: Medical Code(s): E78.5 - Hyperlipidemia, unspecified (4) Pneumonia Status: Acute Category: Medical Code(s): J18.9 - Pneumonia, unspecified organism - Assessment and plan all Dx Assessment and Plan for all problems:: #COVID-19 pneumonia: #Acute hypoxic respiratory failure: 60-year-old male no prior respiratory complaint presented with worsening respiratory failure COVID-19 positive. Flu A and B negative CT on admission of bilateral diffuse patchy airspace disease, negative for pulmonary embolism. Trace bilateral effusions noted,EF 45 to 50% with mild to moderate MR Interval update: Patient denies any new respiratory complaints. Overall his oxygenation appears to be improved this morning saturating 95 to 96% on high flow and nonrebreather. Tolerating awake proning protocol Plan: Continue remdesivir and dexamethasone along with levofloxacin IV for COVID-19 pneumonia and possible community-acquired pneumonia. Continue Barcinitib Continue Advair twice daily Continue awake proning protocol Follow with final blood Culture and nasal MRSA PCR pending. Continue high flow oxygen supplementation to maintain O2 saturation goal of 88 to 92%, patient currently on 100% 40 L. #Thank you for involving pulmonary in this patient care. We will continue to follow.
--- NOTE | 2021-04-06 10:04 | HMH.PNCARD ---
Subjective Date: 04/06/21 Time: 10:00 Principal diagnosis: Covid Interval history: 60-year-old male admitted to [facility] with worsening shortness of breath for the past few days yesterday. Patient states his had been diagnosed with Covid and felt that he was exhibiting the same symptoms as his but worse. Covid protocol being taken. Patient denies productive cough. Patient denies fever. Patient states since being in the hospital overnight he has felt some better. Patient denies chest pain, tightness or pressure. Patient denies palpitations or dizziness. D-dimer was noted as elevated. Chest CTA was performed which revealed extensive bilateral multifocal pneumonia which is being managed by PCP. Trace of bilateral pleural effusions were also noted. This is being managed by pulmonology and PCP. Echocardiogram was performed which revealed EF 55% with no regional wall abnormality with grade 1 diastolic dysfunction noted. There was concern of enlarged aortic root and CT of the chest was recommended to exclude presence of a thoracic aneurysm. Patient did undergo chest CTA which revealed no thoracic aortic aneurysm noted. Vital signs are stable at this time. athletic monitor reveals sinus rhythm with no ectopy. Echo:Conclusion 1. Biatrial enlargement, normal left ventricular size, mild concentric left ventricular hypertrophy, visually estimated ejection fraction 55% with no regional wall motion abnormality, grade 1 diastolic dysfunction seen without tissue Doppler evidence of raise left atrial pressure. 2. Enlarged aortic root as described above, a CT scan of the chest is recommended to exclude presence of thoracic aneurysm. 3. Trace mitral and tricuspid regurgitation. 4. No significant pericardial effusion noted, inferior vena cava is mildly dilated without significant inspiratory collapse. Chest CTA:FINDINGS: Pulmonary arteries: Main pulmonary artery measures 3.5 cm in caliber, mildly dilated, suggesting elevated pulmonary arterial pressures. No large or central pulmonary embolus. There is mild diffuse heterogeneity of the subsegmental pulmonary arteries due to artifact, without convincing filling defect. Aorta: No thoracic aortic aneurysm. No evidence of dissection, within limits of motion artifact. Scattered mild atherosclerotic plaque. 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 Replaced right hepatic artery arising from the SMA, partially visualized. Lungs: Numerous bilateral ground-glass opacities, which are relatively confluent, with randy consolidation noted in several portions of the bilateral upper and lower lobes. Pleural spaces: Trace bilateral pleural effusions. No pneumothorax. Heart: Mild coronary arterial calcification. Heart size borderline enlarged. No pericardial effusion. Lymph nodes: There are a few mildly enlarged prevascular lymph nodes measure up to 1.2 cm in short axis. Right paratracheal lymph nodes measure up to 1.6 cm in short axis. There is a 1.4 cm short axis subcarinal lymph node. There are scattered aortopulmonary window and precarinal lymph nodes measuring up to 1 cm in short axis. Given the extensive pneumonia present, findings are favored to be reactive. Adrenal glands: Mild thickening of the bilateral adrenal glands. There is a probable superimposed 1.6 x 1.0 cm left adrenal nodule, partially visualized. Bones/joints: Mild spondylosis. No acute fracture. Soft tissues: Unremarkable. IMPRESSION: 1. Extensive bilateral multifocal pneumonia, compatible with history of viral infection. 2. No evidence of pulmonary embolus. 3. Trace bilateral pleural effusions. 4. Numerous enlarged lymph nodes are present throughout the mediastinum, probably reactive given the pneumonia. However, c
--- NOTE | 2021-04-06 18:01 | PC.NURSE ---
Pt is alert and oriented x4. He remains on vapotherm 40L/100% fio2 and a non-rebreather with O2 sats ranging from the low 70's to low 90's. O2 drops w/exertion and it takes it a while to recover. However when he prones O2 sats tend stay in the mid 80's - low 90's. Appetite is poor. Protein shakes and fruit provided. He has used a urinal at the bedside. He has had a couple of episodes of incontinence due to diarrhea and coughing spells. Cough is dry, unable to collect sputum. Per respiratory pts O2 this afternoon was measuring 54% on datascope and 65% on portable pulse ox. States pt's ears were blue and he had removed his non-rebreather. He denied feeling sob. O2 at nurses station was reading 80-83% at this time. She replaced non-rebreather and stayed with patient until he recovered.
[2021-04-07] VITALS (15 sets, daily range): BP systolic 90–158; BP diastolic 50–92; PULSE 50–132; RESP 21–40; TEMP 36.1–36.7; O2SAT 80–90; BMI 33.6
--- NOTE | 2021-04-07 03:19 | PC.NURSE ---
Pt is A/O x4. Pt is currently receiving O2 via Non-Rebreather/Vapotherm @ 40 LPM with sats low-mid 80's t/o shift. Pt can prone himself and has been instructed to do so when in prone position pt stats can reach high 80's-90%. Pt denies any pain, N/V. States he has had a persistent cough t/o shift. Pt is using urinal and BSC to void independently. Urine has been clear, and yellow. IV is patent infusing NS @ 75ml. Call light within reach, no concerns at this time.
[2021-04-07 07:01] LABS: Basophils # 0.1 K/mm3 (0-0.2); Basophils % 0.6 % (0.1-2.0); Hemoglobin 12.5 g/dL (14.1-18.0); Lymphocytes # 1.7 K/mm3 (0.7-4.5); Lymphocytes % 12.5 % (10-50); Mean Corpuscular HGB Conc 33.7 g/dL (31.8-35.4); Mean Corpuscular Hemoglobin 30.1 pg (27.0-31.2); Mean Corpuscular Volume 89.3 fl (80-94); Mean Platelet Volume 8.2 fl (7.4-10.4); Monocytes # 0.7 K/mm3 (0.1-1.0); Monocytes % 5.1 % (1.7-9.3); Neutrophils # 10.9 K/mm3 (1.8-7.8); Neutrophils % 81.7 % (37.0-80.0); Platelet Count 512 K/mm3 (142-424); Red Blood Count 4.14 M/mm3 (4.60-6.20); Red Cell Distribution Width 14.4 % (11.5-17.5); White Blood Count 13.3 K/mm3 (4.8-10.8)
[2021-04-07 07:16] LABS: Chloride 105 mmol/L (98-107); Potassium 3.9 mmoL/L (3.5-5.1); Sodium 141 mmol/L (136-145)
[2021-04-07 07:19] LABS: Alanine Aminotransferase 63 U/L (12-78); Albumin Level 3.3 g/dl (3.5-5.0); Albumin/Globulin Ratio 1.1 (1.1-1.8); Alkaline Phosphatase 90 U/L (38-126); Anion Gap 11.9 mEq/L (5-15); Aspartate Amino Transferase 80 U/L (17-59); Bilirubin,Total 0.4 mg/dl (0.2-1.3); Blood Urea Nitrogen 28 mg/dl (9-20); Calcium 8.5 mg/dl (8.4-10.2); Carbon Dioxide 28 mmol/L (22.0-30.0); Creatinine Clearance Estimated 117 mL/min (50-200); Estimated Glomerular Filt Rate 77 ml/min (>60); GFR (African American) 93 ML/MIN (>60); Globulin 3.1 g/dL (1.3-3.2); Glucose 149 mg/dl (74-100); Total Protein,Serum 6.4 g/dl (6.3-8.2)
--- NOTE | 2021-04-07 09:14 | HMH.ACPN2 ---
Internal Medicine - PN: Subj *Date: 04/07/21 *Time: 20:10 Interval history: 60-year-old male patient lying in bed resting quietly does report some respiratory distress during the night, current oxygenation 92% on 40 L 100% Vapotherm and 100% nonrebreather. Discussed with patient advantages of pronation is much as possible, patient verbalizes understanding and will attempt to lie prone more frequently. Exam Vital signs and Labs for Last 24 Hours: Temp Pulse Resp BP Pulse Ox 97.8 F 50 L 21 128/74 85 L 04/07/21 07:43 04/07/21 07:43 04/07/21 07:43 04/07/21 07:43 04/07/21 07:43 Laboratory Results - last 24 hr 04/07/21 06:49: WBC 13.3 H D, RBC 4.14 L D, Hgb 12.5 L, Hct 37.0 L, MCV 89.3, MCH 30.1, MCHC 33.7, RDW 14.4, Plt Count 512 H, MPV 8.2, Neut % (Auto) 81.7 H, Lymph % (Auto) 12.5, [place] % (Auto) 5.1, Eos % (Auto) 0.0 L, Baso % (Auto) 0.6, Neut # (Auto) 10.9 H, Lymph # (Auto) 1.7, [place] # (Auto) 0.7, Eos # (Auto) 0.0, Baso # (Auto) 0.1 04/07/21 06:49: Sodium 141, Potassium 3.9, Chloride 105, Carbon Dioxide 28, Anion Gap 11.9, BUN 28 H, Creatinine 1.00, Estimated Creat Clear 117, Estimated GFR 77, Est GFR ( Amer) 93, Glucose 149 H, Calcium 8.5, Total Bilirubin 0.4, AST 80 H, ALT 63 D, Alkaline Phosphatase 90, Total Protein 6.4, Albumin 3.3 L, Globulin 3.1, Albumin/Globulin Ratio 1.1 I & O for Last 24 hours: Intake & Output 04/04/21 04/05/21 04/06/21 04/07/21 23:59 23:59 23:59 23:59 Intake Total 3100 / 3100 600 / 600 460 / 460 Output Total 1550 / 2150 1525 / 1525 700 / 700 Balance 1550 / 950 -925 / -925 -240 / -240 Weight 226 lb 227 lb 227 lb 1.218 oz 227 lb 0.019 oz Microbiology Reports for the Last 24 Hours: Microbiology 04/05/21 13:05 Nose - Nasal MRSA Culture - Final Negative 04/04/21 00:00 Blood Blood Culture - Preliminary NO GROWTH AFTER 48 HOURS 04/04/21 22:02 Blood Blood Culture - Preliminary NO GROWTH AFTER 48 HOURS - Constitutional mild distress - *Routine HEENT Exam Head: Present: normocephalic Eye: Present: EOMI ENT: Present: mucous membranes moist - *Routine Neck Exam Present: trachea midline. Absent: tracheal deviation - *Routine Respiratory Exam Present: crackles - *Routine Cardiovascular Exam Present: RRR - *Routine Abdominal Exam Present: soft, normoactive bowel sounds. Absent: tenderness, rebound - *Routine Extremities Exam Present: full ROM. Absent: cyanosis, clubbing, edema, pulses intact - *Routine Skin Exam Present: intact, dry, warm. Absent: cyanosis, erythema - *Routine Neurological Exam Present: alert, oriented X3. Absent: altered mental status - Routine Psychiatric Exam Present: normal affect, normal thought process. Absent: homicidal ideation, auditory hallucinations Assessment and Plan (1) COVID-19 with pulmonary comorbidity Status: Acute Category: Medical Code(s): U07.1 - COVID-19; J98.4 - Other disorders of lung (2) HTN (hypertension) Status: Acute Category: Medical Code(s): I10 - Essential (primary) hypertension (3) HLD (hyperlipidemia) Status: Acute Category: Medical Code(s): E78.5 - Hyperlipidemia, unspecified (4) Pneumonia Status: Acute Category: Medical Code(s): J18.9 - Pneumonia, unspecified organism - Assessment and plan all Dx Assessment and Plan for all problems:: Dr. Hu, all orders per Dr. Hu: 1. Continue new current medical management 2. Wean oxygen as tolerated 3. Pulmonary following
--- NOTE | 2021-04-07 09:30 | XR_ITS ---
PROCEDURE: XR CHEST PORTABLE CLINICAL HISTORY: hypoxia Covid19 pneumonia, hypoxia COMPARISON: CT CT ANGIO CHEST PE PROTOCOL from 04/04/2021 CR XR CHEST 2V from 04/04/2021 CR XR CHEST PORTABLE from 04/05/2021 FINDINGS: There is diffuse bilateral alveolar opacification which has progressed since the previous exam. No evidence of pneumothorax. No acute bony abnormalities. IMPRESSION: Worsening diffuse bilateral multifocal pneumonia Dictated by: Juan Jose Mendez MD 04/07/2021 10:19 Juan Jose Mendez MD in [facility] 04/07/2021 10:19
[2021-04-07 12:04] LABS: POC Glucose,Bedside 282 (70-110)
--- NOTE | 2021-04-07 12:09 | HMH.PULMPN ---
Internal Medicine - PN: Subj *Date: 04/07/21 *Time: 12:09 Interval history: Patient admits slight worsening of his respiratory distress. Exam - Constitutional Constitutional:: Absent: no acute distress, comfortable - HENMT Exam HENMT: Present: normocephalic, atraumatic - Eye Exam Eyes:: Present: normal appearance both eyes and related structures - Neck Exam Neck:: Present: normal visual inspection - Respiratory Exam Respiratory:: Present: respiratory distress, crackles. Absent: wheezing - Cardiovascular Exam Cardiac:: Present: S1, S2 - GI Exam GI:: Present: soft - Skin Exam Skin: Present: warm, no rash - Neurological Exam Neurological: Present: alert, awake, normal cognition - Extremities Exam Extremities: Present: no cyanosis, no clubbing, edema Assessment and Plan (1) COVID-19 with pulmonary comorbidity Status: Acute Category: Medical Code(s): U07.1 - COVID-19; J98.4 - Other disorders of lung (2) HTN (hypertension) Status: Acute Category: Medical Code(s): I10 - Essential (primary) hypertension (3) HLD (hyperlipidemia) Status: Acute Category: Medical Code(s): E78.5 - Hyperlipidemia, unspecified (4) Pneumonia Status: Acute Category: Medical Code(s): J18.9 - Pneumonia, unspecified organism - Assessment and plan all Dx Assessment and Plan for all problems:: #Acute hypoxic respiratory failure: #COVID-19 pneumonia 60-year-old male no prior respiratory complaint presented with worsening respiratory failure COVID-19 positive. Flu A and B negative CT on admission of bilateral diffuse patchy airspace disease, negative for pulmonary embolism. Trace bilateral effusions noted,EF 45 to 50% with mild to moderate MR Patient has been receiving high flow nasal cannula at 100% 40 L along with facemask to maintain his saturations. Oxygen saturations worsened today, he is saturating 90 to 91% when he was saturating 95% yesterday with similar oxygen requirements. Patient also admits slight worsening of the respiratory distress. Chest x-ray bilateral significantly worsened infiltrates. Physical examination revealed bilateral lower extremity edema. Slightly worsening leukocytosis. Nasal MRSA PCR negative. Blood cultures no growth 48 hours. Overall Ms. Meek's clinical condition is still critical and has worsened since yesterday. We will closely monitor Plan: Lasix 40 mg IV Continue remdesivir and dexamethasone along with levofloxacin IV for COVID-19 pneumonia and possible community-acquired pneumonia. Continue Barcinitib Continue Advair twice daily Continue awake proning protocol Continue high flow oxygen supplementation to maintain O2 saturation goal of 88 to 92%, patient currently on 100% 40 L. #Thank you for involving pulmonary in this patient care. We will continue to follow.
[2021-04-08] VITALS: PULSE 100; O2SAT 89
--- NOTE | 2021-04-08 01:57 | HMH.RR ---
Acute Rapid Response Note - Subjective Date Responded: 04/08/21 Time Responded: 01:20 Provider Note: called for code blue - Objective Findings: Vital Signs - Last 4 Hours Temperature 98.0 F 04/07/21 23:50 Temperature Source Oral 04/07/21 23:50 Pulse Rate 90 04/08/21 00:00 Respiratory Rate 28 H 04/07/21 23:50 Blood Pressure 108/61 L 04/07/21 23:50 Blood Pressure Mean 76 04/07/21 23:50 Blood Pressure Source Automatic Cuff 04/07/21 23:50 Blood Pressure Position Supine 04/07/21 23:50 02 Sat by Pulse Oximetry 89 L 04/08/21 00:00 Oxygen Delivery Method Vapotherm 04/08/21 00:45 Oxygen Flow Rate (LPM) 2 04/07/21 21:00 pt with sudden collapse and no breathing or pulse - code blue with acls protocol- Rapid Response Exam - General General appearance: alert, other (cyanotic ) - Head Head exam: atraumatic - Eye Eye exam: Present: other (nonreactive) - ENT ENT exam: Present: mucous membranes dry - Neck Neck exam: Present: trachea midline - Respiratory Respiratory exam: Present: respiratory distress, other (apnea) - Cardiovascular Cardiovascular exam: Present: other (no pulse ) - Abdominal Exam Abdominal exam: Present: soft - Extremities Exam Extremities exam: Present: pedal edema - Neurological Exam Neurological exam: Present: other (nonresponsive ) - Skin Skin exam: Present: cyanosis RR Procedures/Assess/Plan - Bedside Intubation Time Out Performed: No Sedative: none Laryngoscope: Simmons Tube size: 7.5 Tube uncuffed: No Secured location: teeth Placement confirmation: visualized tube passing through cords, equal breath sounds bilaterally, confirmation by capnometry Patient tolerated procedure intubation: no complications Intubation Complications: none (1) Respiratory arrest Status: Acute (2) COVID-19 with pulmonary comorbidity Status: Acute - Assessment and plan all Dx Assessment and Plan for all problems:: pt did not respond to acls protocol and pronounced [id number]
--- NOTE | 2021-04-08 02:11 | P.DN_ITS ---
Pronouncement Note - Date and Time of Date of : 04/08/21 Time of : 01:37 - PCOD Preliminary cause of : Acute respiratory failure - Additional Data Confirmation of : no pulse, no respirations, no heart sounds, pupils fixed and dilated Family: contacted Attending/PCP notified?: Yes Attending physician: Jhony Lemus MD Was code activated?: Yes Autopsy requested?: No workers compensation examiner notified?: Yes Organ bank notified?: Yes Advance directives: No
--- NOTE | 2021-04-08 02:12 | HMH.DCSUM ---
General - General Admission date:: 04/04/21 Discharge date: 04/08/21 HPI HPI: 60-year-old male patient presented to the [facility] department with reports of shortness of breath, he states that his was Covid +4 weeks ago and he began having symptoms then, but was never tested. He reports he has been short of breath in the past 4 weeks and has been increasing and now it is intolerable. 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 SARS-COV-2+ 04/04/21 CXR: IMPRESSION: Extensive bilateral airspace opacities probably represent multifocal pneumonia, versus pulmonary edema. Electronically signed by Naveed Hanson MD 04/04/21 Chest CTA: FINDINGS: Pulmonary arteries: Main pulmonary artery measures 3.5 cm in caliber, mildly dilated, suggesting elevated pulmonary arterial pressures. No large or central pulmonary embolus. There is mild diffuse heterogeneity of the subsegmental pulmonary arteries due to artifact, without convincing filling defect. Aorta: No thoracic aortic aneurysm. No evidence of dissection, within limits of motion artifact. Scattered mild atherosclerotic plaque. 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 Replaced right hepatic artery arising from the SMA, partially visualized. Lungs: Numerous bilateral ground-glass opacities, which are relatively confluent, with randy consolidation noted in several portions of the bilateral upper and lower lobes. Pleural spaces: Trace bilateral pleural effusions. No pneumothorax. Heart: Mild coronary arterial calcification. Heart size borderline enlarged. No pericardial effusion. Lymph nodes: There are a few mildly enlarged prevascular lymph nodes measure up to 1.2 cm in short axis. Right paratracheal lymph nodes measure up to 1.6 cm in short axis. There is a 1.4 cm short axis subcarinal lymph node. There are scattered aortopulmonary window and precarinal lymph nodes measuring up to 1 cm in short axis. Given the extensive pneumonia present, findings are favored to be reactive. Adrenal glands: Mild thickening of the bilateral adrenal glands. There is a probable superimposed 1.6 x 1.0 cm left adrenal nodule, partially visualized. Bones/joints: Mild spondylosis. No acute fracture. Soft tissues: Unremarkable. IMPRESSION: 1. Extensive bilateral multifocal pneumonia, compatible with history of viral infection. 2. No evidence of pulmonary embolus. 3. Trace bilateral pleural effusions. 4. Numerous enlarged lymph nodes are present throughout the mediastinum, probably reactive given the pneumonia. However, consider a follow-up CT in 3-6 months to assess for resolution. 5. Nonspecific thickening bilateral glands, with a partially visualized likely 1.6 x 1.0 cm left adrenal nodule. Consider 12 month follow-up adrenal CT. Electronically signed by Naveed Hanson MD 60-year-old male patient sitting up in bed denies any respiratory distress or chest pain during the night. Oxygenation is Vapotherm 40 L at 100%. Pulmonology to see. Hospital Course Hospital Course: this pt was admitted to covid-19 unit with pulmonary complications-he was seen by pulmonary consult -r. Fantasma is 60-year-old male prior smoker last month 20 years ago unvaccinated presented hospital complaining of worsening respiratory distress and found to be positive for COVID-19 pneumonia admits sick contacts, her was diagnosed with COVID-19 pneumonia. Patient admits cough with worsening productive phlegm which is whitish in color along with subjective fevers and chills. He denies any baseline respiratory complaints. Denies any use of inhalers at home. 10-year-old male no prior respi
--- NOTE | 2021-04-08 02:45 | PC.NURSE ---
AT APPX 0123 THIS NURSE WAS NOTIFIED OF PT BEING OFF HIS MONITOR. THIS NURSE IMMEDIATELY WENT INTO ROOM TO FIND PT LAYING CARE HOME OFF THE BED ONTO THE FLOOR. ASSESSED PT AND FOUND TO BE APNIC AND UNRESPONSIVE WITH NO PULSE. THIS NURSE IMMEDIATELY CALLED A CODE BLUE, AT 0125. STARTED CPR AT THIS TIME. LOG BUYER, BUSINESS BANKER, MD COSBY, AND BLOOM CONVEYOR OPERATOR AT BEDSIDE. ACLS RESPONSE PROCEEDED. EPI GIVEN X3. 7.5 ET TUBE PLACED BY MD COSBY AT 0135. AT THIS TIME, THIS RN CALLED FAMILY AND UPDATED THEM ON THE SITUATION, FAMILY ON THEIR WAY AT THIS TIME. PRONOUNCED AT 0137.
--- NOTE | 2021-04-08 03:26 | PC.NURSE ---
MATT NOTIFIED CASE #[id number] BETTY RICKETTS
== END 2021-04-08 06:43 | disposition expired | DRG 177 ==
LOC: ER 22:52 → 2ND 23:17
PROVIDERS: Internal Medicine Pulmonary Disease; Admitting Provider Emergency Medicine; Emergency Provider Emergency Medicine; PCP Physician Assistant; Visit Provider Emergency Medicine
DX: U07.1 COVID-19 (principal); J12.82 Pneumonia due to coronavirus disease 2019; J96.01 Acute respiratory failure with hypoxia; I10 Essential (primary) hypertension; Z79.899 Other long term (current) drug therapy
CPT/HCPCS: 36415; 71045; 71046; 71275; 80048; 80053; 82962; 83605; 83735; 83880; 84145; 84484; 85007; 85025; 85378; 85651; 86140; 87040; 87081; 93005; 93306; 94640; 94761; 99284; J1956; J2405; Q9967; U0003